=== PATIENT | male | born 1995 | race African-American/Black ===

== ENCOUNTER 2017-09-15 12:13 | Emergency (ER) | payer SELFPAY ==
[~2017-09-15] VITALS: Ht 180.3 cm; Wt 68.0 kg
[2017-09-15 12:17] VITALS: BP 145/72; PULSE 82; RESP 18; TEMP 98.7; O2SAT 100
--- NOTE | 2017-09-15 13:19 | PD ---
HPI Chief Complaint: GI Complaint Time Seen by Provider: 13:07 Travel History International Travel<30 days: No Contact w/Intl Traveler<30days: No Traveled to known affect area: No History of Present Illness HPI This 22-year-old male is complaining of feeling lightheaded. He has been homeless for a couple of days and has been walking a lot. He has not been eating. Denies any medical problems. He denies alcohol or drug use. He denies any chest pain or shortness of breath. PFSH Past Medical History Medical History: Denies Significant Hx Past Surgical History Surgical History: No Previous Surgery Social History Alcohol Use: No Tobacco Use: No Substance Use: No Allergies-Medications (Allergen,Severity, Reaction): Coded Allergies: No Known Allergies (Unverified , 09/15/17) Reported Meds & Prescriptions Reported Meds & Active Scripts Active No Active Prescriptions or Reported Medications Review of Systems General / Constitutional: No: Fever, Chills Eyes: No: Diploplia, Blurred Vision HENT: Positive: Headaches, No: Vertigo Cardiovascular: No: Chest Pain or Discomfort, Palpitations Respiratory: No: Cough, Shortness of Breath Genitourinary: No: Urgency, Frequency Musculoskeletal: No: Myalgias, Arthralgias Skin: No Rash Neurologic: Positive: Weakness, No: Focal Abnormalities Psychiatric: No: Substance Abuse Hematologic/Lymphatic: No: Easy Bruising Physical Exam Narrative GENERAL: Well-developed male SKIN: Focused skin assessment warm/dry. HEAD: Atraumatic. Normocephalic. EYES: Pupils equal and round. No scleral icterus. No injection or drainage. ENT: No nasal bleeding or discharge. Mucous membranes pink and moist. NECK: Trachea midline. No JVD. CARDIOVASCULAR: Regular rate and rhythm. No murmur appreciated. RESPIRATORY: No accessory muscle use. Clear to auscultation. Breath sounds equal bilaterally. GASTROINTESTINAL: Abdomen soft, non-tender, nondistended. Hepatic and splenic margins not palpable. MUSCULOSKELETAL: No obvious deformities. No clubbing. No cyanosis. No edema. NEUROLOGICAL: Awake and alert. No obvious cranial nerve deficits. Motor grossly within normal limits. Normal speech. PSYCHIATRIC: Appropriate mood and affect; insight and judgment normal. Data Data Last Documented VS Vital Signs Date Time Temp Pulse Resp B/P (MAP) Pulse Ox O2 Delivery O2 Flow Rate FiO2 09/15/17 12:17 98.7 82 18 145/72 (54) 100 [facility] Medical Decision Making Medical Screen Exam Complete: Yes Emergency Medical Condition: Yes Medical Record Reviewed: Yes Differential Diagnosis Feeling weak and lightheaded due to poor food intake. Differential includes dehydration Narrative Course Flank examination is negative. Patient is stable for discharge Diagnosis Primary Impression: Dehydration Scripts No Active Prescriptions or Reported Meds Disposition: 01 DISCHARGE HOME Condition: Stable Jose Valadez MD Sep 15, 2017 13:19
[2017-09-16] MEDS ORDERED: MACR100C2 PO (01:54)
== END 2017-09-15 13:36 | disposition home or self-care (01) ==
LOC: PHED 12:13
DX: E86.0 Dehydration (principal); Z59.0 Homelessness
CPT/HCPCS: 99283

== ENCOUNTER 2017-09-16 00:52 | Emergency (ER) | payer SELFPAY ==
[~2017-09-16] VITALS: Ht 180.3 cm; Wt 63.5 kg
[2017-09-16 00:57] VITALS: BP 146/86; PULSE 55; RESP 12; TEMP 97.8; O2SAT 100
--- NOTE | 2017-09-16 01:12 | PD ---
HPI Chief Complaint: Complaint Time Seen by Provider: 01:11 Travel History International Travel<30 days: No Contact w/Intl Traveler<30days: No Traveled to known affect area: No History of Present Illness HPI 22-year-old male came to the emergency room with history of dysuria. Patient was seen earlier during the day yesterday for generalized weakness. There is a chance that the patient could be homeless given his appearance. He also says that he wants to be tested for STD. Upon asking patient says he does not remember the last time he had sex. Vital signs are stable. Patient is not very forthcoming with the history. [facility] Past Medical History Narrative Medical List of his past medical history as reviewed from the nursing note. Social History Alcohol Use: No Tobacco Use: No Substance Use: No Allergies-Medications (Allergen,Severity, Reaction): Coded Allergies: No Known Allergies (Unverified , 09/16/17) Comments List of his allergies reviewed from the nursing note. Reported Meds & Prescriptions Reported Meds & Active Scripts Active Macrobid (Nitrofurantoin Monoh/Nitrofur Macro) 100 Mg Cap 100 Mg PO BID 10 Days Narrative Medication List of his home medications reviewed from the nursing note. Review of Systems Except as stated in HPI: all other systems reviewed are Neg Genitourinary: Positive: Dysuria Physical Exam Narrative GENERAL: Awake, alert, disheveled, does not appear to be in any distress SKIN: Focused skin assessment warm/dry. HEAD: Atraumatic. Normocephalic. EYES: Pupils equal and round. No scleral icterus. No injection or drainage. ENT: No nasal bleeding or discharge. Mucous membranes pink and moist. NECK: Trachea midline. No JVD. CARDIOVASCULAR: Regular rate and rhythm. No murmur appreciated. RESPIRATORY: No accessory muscle use. Clear to auscultation. Breath sounds equal bilaterally. GASTROINTESTINAL: Abdomen soft, non-tender, nondistended. Hepatic and splenic margins not palpable. MUSCULOSKELETAL: No obvious deformities. No clubbing. No cyanosis. No edema. NEUROLOGICAL: Awake and alert. No obvious cranial nerve deficits. Motor grossly within normal limits. Normal speech. PSYCHIATRIC: Appropriate mood and affect; insight and judgment normal. Data Data Last Documented VS Orders Orders Urinalysis - C+S If Indicated (09/16/17 01:13) Sodium Chloride 0.9% Flush (Ns Flush) (09/16/17 01:15) Urine Culture (09/16/17 01:15) Nitrofurantoin Monohyd Macrocr (Macrobid (09/16/17 02:00) Ed Discharge Order (09/16/17 01:54) Labs Laboratory Tests Test 09/16/17 01:15 Urine Color YELLOW Urine Turbidity SLIGHT Urine pH 6.0 Urine Specific [place] 1.023 Urine Protein NEG mg/dL Urine Glucose (UA) NEG mg/dL Urine Ketones TRACE mg/dL Urine Occult Blood TRACE Urine Nitrite NEG Urine Bilirubin NEG Urine Leukocyte Esterase TRACE Urine RBC 0-3 /hpf Urine WBC 6-8 /hpf Urine WBC Clumps OCC Urine Squamous Epithelial Cells 0-5 /hpf Urine Mucus OCC /lpf Microscopic Urinalysis Comment CULTURE INDICATED MDM Medical Decision Making Medical Screen Exam Complete: Yes Emergency Medical Condition: Yes Medical Record Reviewed: Yes Differential Diagnosis UTI, urethritis Narrative Course 1:52 AM UA is suggestive of UTI. I've given him a dose of Macrobid and he will be discharged home on a prescription. GC and Chlamydia is pending. Procedures EKG Prior to Arrival: No Diagnosis Primary Impression: UTI (urinary tract infection) Qualified Codes: N39.0 - Urinary tract infection, site not specified Referrals: Primary Care Physician 1 week Additional Instructions: Use condoms during sex. Take the medication as per the prescription direction Med/Other Pt SpecificInfo: Prescription(s) given Scripts Nitrofurantoin Monohydrate Macrocrystals (Macrobid) 100 Mg Cap 100 MG PO BID for Infection for 10 Days, #20 CAP 0 Refills Prov: Matthieu Javed MD 09/16/17 Disposition: 01 DISCHARGE HOME Condition: Stable Matthieu Javed MD Sep 16, 2017 01:12
[2017-09-16] MEDS ORDERED: SODIUM CHLORIDE 0.9% FLUSH 10 ML FLUSH IVF PRN (01:15)
[2017-09-16 01:22] LABS: BLOOD, URINE TRACE (NEG); GLUCOSE,URINE NEG (NEG); KETONE, URINE TRACE mg/dL (NEG); NITRITE,URINE NEG (NEG)
[2017-09-16 01:33] LABS: MUCUS URINE OCC /lpf (OCC); URINE COLOR YELLOW (YELLW/STRAW)
[2017-09-16 01:34] LABS: RBC, URINE 0-3 /hpf (0-3); SQUAMOUS EPITHELIAL CELL URINE 0-5 /hpf (0-5)
[2017-09-16 01:35] LABS: COMMENT (UR) CULTURE INDICATED; CULTURE IF INDICATED CULTURE INDICATED
[2017-09-16] MEDS ORDERED: MACR100C2 PO (01:54)
[2017-09-16] MEDS ORDERED: NITROFURANTOIN MONOHYD MACROCR 100 MG CAP PO ONE (02:00)
[2017-09-16 02:03] VITALS: BP 158/90; PULSE 60; PULSE 75; RESP 16; TEMP 98.2; O2SAT 98
== END 2017-09-16 02:09 | disposition home or self-care (01) ==
LOC: PHED 00:52
DX: N39.0 Urinary tract infection, site not specified (principal); B96.89 Other specified bacterial agents as the cause of diseases classified elsewhere
CPT/HCPCS: 81001; 87086; 99283